=== PATIENT | male | born 1985 | race Caucasian/White ===

== ENCOUNTER → 2018-08-02 | Day surgery (SDC) | payer BC ==
[~2018-08-02] MED LIST: Bupivacaine HCl 0.5%/Epinephrine 1:200,000/PF 30 ml Vial ONE; CEFAZOLIN/Water 2 GM/20 ML SYRINGE ONE; Fentanyl 100 MCG/2 ML VIAL ONE; Lidocaine 2% 10 ML INJ ONE; PHENYLEPHRINE-NS 100 MCG/ML 10 ML SYRINGE ONE; PROPOFOL 200 MG/20 ML VIAL ONE; Propofol 500 MG/50 ML VIAL ONE
--- NOTE | 2018-08-02 12:25 | OP ---
DATE OF PROCEDURE: 08/02/2018 PREOPERATIVE DIAGNOSIS: Left inguinal adenopathy. SURGEON: Brent Morales M.D. PROCEDURE PERFORMED: Left inguinal lymph node biopsy. INDICATIONS: A 33-year-old male who now for about a year has a slowly enlarging lymph node in the le ft groin, did not respond to antibiotics. It is not painful. No weight loss, but he has been having some night sweats. FINDINGS: A 1.5 cm multilobular lymph node left inguinal area. DESCRIPTION OF PROCEDURE: After informed consent was obtained, patient was taken to the operating ro om, given total intravenous anesthesia, placed in the supine position. Groin was prepped and draped in usual fashion. Local anesthesia infiltrated subcutaneously and deep. A transverse inguinal incis ion was performed over the mass. The mass was dissected out. Efferent and afferent lymphatics were ligated with 3-0 Vicryl ties. One of the nodules on the lymph node was excised and minced and placed in, brought for culture. The remaining node was sent fresh for lymphoma protocol. Hemostasis assur ed. Subcutaneous reapproximated with interrupted 3-0 Vicryl and skin closed with a running subcuticu lar 4-0 Rapide. Steri-Strips applied. Sterile bandage applied. The patient tolerated the procedure well and was transferred to recovery in good condition. Sponge and needle count verified correct x2 .
== END ==
LOC: SDC 07:31
PROVIDERS: ATTEND Surgery
PROC: 07BJ0ZX Excision of Left Inguinal Lymphatic, Open Approach, Diagnostic (ICD-10-PCS; principal; 2018-08-02)
DX: R59.0 Localized enlarged lymph nodes (principal)
CPT/HCPCS: 87070; 87205; 88184; 88305; J0670; J2704; J3010